=== PATIENT | male | born 1955 | race Caucasian/White ===

== ENCOUNTER 2016-07-21 20:11 | Emergency (ER) | payer MEDICARE, OTHER ==
--- NOTE | ~2016-07-21 | CR211 ---
[facility] A Service of [facility] & [facility] RADIOLOGY TEXT RESULTS PATIENT: ALTHEA STARKEY LOCATION: [facility] : 55 UNIT #: [id number] AGE: [address]: Soren Rojas MD SEX: M ORDER DR: [id number] [facility] [address] [place], [place] [address] [id number] E MR#: [id number] #: [id number] NAME: ALTHEA STARKEY : 1955 SEX: M STUDY DATE/TIME: 07/21/2016 20:19 UNIT: [facility] ROOM: STUDY DESCRIPTION: CR Ribs Uni 2 View W PA Ch Rt Attending Physician: Soren Rojas M.D. Referring Physician: Sadia Esquivel M.D. Ordering Physician: Soren Rojas M.D. Primary Care Physician: Sadia Esquivel M.D. MEDICAL IMAGING REPORT This report is preliminary unless electronic signature is present EXAM AP and oblique views of the right ribs. COMPARISON PA chest with AP and oblique views of the left ribs on the same date. INDICATIONS 60-year-old male with right-sided rib pain after falling today. FINDINGS Cholecystectomy clips are noted. There are prominently gas-distended bowel loops in the upper abdomen, favored to primarily represent colon. The pattern has not significantly changed from a radiograph of April 14, 2013. Cardiomediastinal silhouette is normal. There are acute nondisplaced fractures of the right eighth and ninth lateral ribs. There is questionable free subdiaphragmatic air on the right. Calcifications in the bilateral neck, possibly vascular in nature. IMPRESSION 1. Acute nondisplaced fractures of the right eighth and ninth lateral ribs. No evidence of pneumothorax, pleural effusion or acute airspace disease. Normal cardiomediastinal silhouette. 2. Calcifications in the bilateral neck, possibly vascular in nature. 3. Gas noted below the right hemidiaphragm with possible colonic signature overlying it, but the colon is noted to not take this course on prior CT exams and the finding is concerning for possible free air within the abdomen of uncertain etiology. Left and right lateral decubitus views are recommended for further characterization. Dictated by... Nikhil Sutton M.D. [facility] A Service of [facility] RADIOLOGY TEXT RESULTS PATIENT: ALTHEA STARKEY LOCATION: [facility] : 55 UNIT #: [id number] AGE: [address]: Soren Rojas MD SEX: M ORDER DR: THIS IS AN ELECTRONICALLY VERIFIED REPORT Nikhil Sutton M.D. at 07/22/2016 2:15 PM BLM/psc TD: 07/22/2016 00:39 JOB #: [id number] MEDICAL IMAGING REPORT COPY
--- NOTE | ~2016-07-21 | EKG ---
PATIENT: ALTHEA STARKEY UNIT #: [id number] Ventricular Rate: 102 BPM Atrial Rate: 102 BPM P-R Interval: 166 ms QRS Duration: 86 ms Q-T Interval: 368 ms QTC Calculation(Bezet): 479 ms P [place]: 82 degrees Calculated R [place]: 74 degrees Calculated T [place]: 65 degrees Diagnosis Line: Sinus tachycardia Diagnosis Line: Nonspecific ST abnormality Diagnosis Line: Abnormal ECG Diagnosis Line: When compared with ECG of 22-JUN-2016 11:31, Diagnosis Line: ST no longer elevated in Inferior leads Diagnosis Line: Non-specific change in ST segment in Lateral leads Diagnosis Line: T wave amplitude has decreased in Anterior leads Diagnosis Line: Confirmed by BERTA FAROOQ MD ([id number]) on 07/22/2016 Diagnosis Line: 6:12:55 PM INTERPRETING MD: OSEAS VILLALTA
--- NOTE | ~2016-07-21 | CR210 ---
[facility] A Service of [facility] RADIOLOGY TEXT RESULTS PATIENT: ALTHEA STARKYE LOCATION: [facility] : 55 UNIT #: [id number] AGE: [address]: Soren Rojas MD SEX: M ORDER DR: [id number] [facility] [address] [place], [place] [address] [id number] E MR#: [id number] Acc #: [id number] NAME: ALTHEA STARKEY : 1955 SEX: M STUDY DATE/TIME: 07/21/2016 20:18 UNIT: [facility] ROOM: STUDY DESCRIPTION: CR Ribs Uni 2 View W PA Ch Lt Attending Physician: Sroen Rojas M.D. Referring Physician: Sadia Esquivel M.D. Ordering Physician: Soren Rojas M.D. Primary Care Physician: Sadia Esquivel M.D. MEDICAL IMAGING REPORT This report is preliminary unless electronic signature is present EXAM PA chest with AP and oblique views of the left ribs. DATE OF EXAM 07/21/2016 COMPARISON Acute abdominal series dated April 14, 2013. INDICATION 60-year-old male with left-sided rib pain after falling today. FINDINGS Lungs appear hyperlucent, most suggestive of emphysema. There is no evidence of pneumothorax, pleural effusion or acute airspace disease. Cardiomediastinal silhouette is within normal limits. There is gaseous distension of the stomach. There is similar appearing gaseous distension of bowel loops favored to represent colon in the epigastric region in both upper quadrants as compared to April 14, 2013. There is calcification in the right neck, possibly within the thyroid gland or, perhaps, involving the carotid artery. There has been prior cholecystectomy. The sutures in the epigastrium likely reflecting prior abdominal wall hernia repair. There is calcification of the thoracic aorta. No evidence of rib fracture. IMPRESSION 1. No acute radiographic abnormality of the chest. There is no evidence of rib fracture. 2. Findings suggestive of emphysema. Dictated by... Nikhil Sutton M.D. [facility] A Service of [facility] RADIOLOGY TEXT RESULTS PATIENT: ALTHEA STARKEY [id number] : 55 UNIT #: [id number] AGE: [address]: Soren Rojas MD SEX: M ORDER DR: THIS IS AN ELECTRONICALLY VERIFIED REPORT Nikhil Sutton M.D. at 07/22/2016 2:14 PM Terry TD: 07/22/2016 00:42 JOB #: [id number] MEDICAL IMAGING REPORT COPY
--- NOTE | ~2016-07-21 | CT71 ---
[facility] A Service of [facility] RADIOLOGY TEXT RESULTS PATIENT: ALTHEA STARKEY LOCATION: [facility] : 55 UNIT #: [id number] AGE: [address]: Soren Rojas MD SEX: M ORDER DR: [id number] [facility] [address] [place], [place] [address] [id number] E MR#: [id number] Acc #: [id number] NAME: ALTHEA STARKEY : 1955 SEX: M STUDY DATE/TIME: 07/21/2016 20:45 UNIT: [facility] ROOM: STUDY DESCRIPTION: CT Head Wo Contrast Attending Physician: Soren Rojas M.D. Referring Physician: Roberto Vaughan M.D. Ordering Physician: Deandre Good M.D. Primary Care Physician: Sadia Esquivel M.D. MEDICAL IMAGING REPORT This report is preliminary unless electronic signature is present EXAM Head CT without. DATE OF EXAM 07/21/2016 HISTORY Fell, busted lip, rib pain; fell 3 times today, head pain/forehead, alcohol history, pancreatitis, kidney disease. No cancer history. COMMENT Routine noncontrasted head CT is reviewed. COMPARISON Comparison is from 11/08/1998. TECHNIQUE NOTE: This CT exam was performed with one or more of the following radiation dose reduction techniques: automatic exposure control, adjustment of mA and/or kV according to patient size, and iterative reconstruction. FINDINGS There is no displaced calvarial fracture. The mastoid air cells are clear. The paranasal sinuses contain mucosal disease and there is partial opacification of the ethmoid air cells. Mucosal thickening of the sphenoid sinuses, maxillary sinuses. At least retained secretions in the sphenoid sinuses, possibly with tiny air-fluid level left sphenoid sinus. Osteomas probably left frontal sinus incidentally noted. Vascular calcifications at the base of the brain. There is atrophy greater than expected for age group. There is increase in CSF spaces around the brain, particularly anteriorly since 2008. This [facility] A Service of [facility] RADIOLOGY TEXT RESULTS PATIENT: ALTHEA STARKEY [id number] 55 UNIT #: [id number] AGE: [address]: Soren Rojas MD SEX: M ORDER DR: is probably due to progression of atrophy. There is also some density along the tentorium, asymmetric on the right side and this raises concern for a small amount of acute subdural blood along the tentorium. This is a change in appearance on comparison to 2009 and for this reason, I would recommend short-term followup imaging to reassess for possible acute intracranial hemorrhage. No acute cortical infarct. Mild periventricular white matter low-attenuation is nonspecific, but probably due to small vessel disease. No significant intracranial mass effect. IMPRESSION 1. There is some increase in asymmetric hyperdense material along the right side tentorium cerebellum on comparison back to a study from 2008, and this raises possibility of an acute subdural hematoma layering along the right side tentorium in the setting of head trauma. For this reason, I would recommend short-term followup head CT to reassess possible acute intracranial hemorrhage. 2. Also interval increase in size of CSF spaces overlying the frontal lobes bilaterally, probably related to interval progression of atrophy. 3. Mild probable sequelae of small vessel disease. 4. Paranasal sinus disease with at least some retained secretions, possibly small air-fluid level in the left sphenoid sinus. Findings called by myself at the end of this dictation to the emergency room. STAT * RESULT Dictated by... Mila Fleming M.D. THIS IS AN ELECTRONICALLY VERIFIED REPORT Mila Fleming M.D. at 07/21/2016 11:44 PM JAJA/soraya TD: 07/21/2016 21:45 JOB #: [id number] MEDICAL IMAGING REPORT COPY
--- NOTE | ~2016-07-21 | CT4 ---
[facility] A Service of [facility] RADIOLOGY TEXT RESULTS PATIENT: ALTHEA STARKEY LOCATION: [place] : 55 UNIT #: [id number] AGE: [address]: Soren Rojas MD SEX: M ORDER DR: [id number] [facility] [address] [place], [place] [address] [id number] E MR#: [id number] Acc #: [id number] NAME: ALTHEA STARKEY : 1955 SEX: M STUDY DATE/TIME: 07/21/2016 21:56 UNIT: [facility] ROOM: STUDY DESCRIPTION: CT Abd and Pelv Wo Cont Attending Physician: Soren Rojas M.D. Referring Physician: Sadia Esquivel M.D. Ordering Physician: Deandre Good M.D. Primary Care Physician: Sadia Esquivel M.D. MEDICAL IMAGING REPORT This report is preliminary unless electronic signature is present EXAM CT abdomen and pelvis, 07/21 at 2156 hours INDICATIONS Pain after fall 3 times today. History of alcohol abuse and pancreatitis. TECHNIQUE Axial images were obtained through the abdomen and pelvis without contrast. Multiplanar reformats were obtained. Comparison is made with 10/20/2009. This CT exam was performed with one or more of the following radiation dose reduction techniques: Automatic exposure control, adjustment of mA and/or kV according to patient size, and iterative reconstruction. FINDINGS ABDOMEN: There is some atelectasis or chronic scarring in the lower lobes. There is diffuse atherosclerotic disease. The gallbladder is surgically absent. There is marked hepatic steatosis. There are a few calcifications in the pancreas, compatible with chronic calcific pancreatitis. There is no evidence of acute pancreatitis on this noncontrast study. Increased density is noted in the renal pyramids bilaterally, which may reflect medullary sponge kidney. No discrete renal stones are seen on either side. There are no ureteral stones and there is no hydronephrosis. Unenhanced solid organs are otherwise normal. The unopacified GI tract demonstrates gas in large and small bowel loops which may reflect a component of ileus. There is nothing to suggest a bowel obstruction at this time. No free fluid. PELVIS: There is atherosclerotic disease. Urinary bladder is normal. There are no lower ureteral stones. There is no free fluid. The lower GI tract is grossly normal. Redundant sigmoid loops are incidentally noted. There is a right lateral ninth rib fracture. There is degenerative STS. [facility] A Service of [facility] RADIOLOGY TEXT RESULTS PATIENT: ALTHEA STARKEY LOCATION: [facility] : 55 UNIT #: [id number] AGE: [address]: Soren Rojas MD SEX: M ORDER DR: disease in the lumbar spine. IMPRESSION 1. Right lateral ninth rib fracture. No other evidence of acute trauma in the abdomen or pelvis. 2. Evidence of chronic calcific pancreatitis. No evidence of acute pancreatitis at this time. 3. Fatty liver. 4. Cholecystectomy. 5. No renal or ureteral stones are seen and there is no hydronephrosis. There is increased density in the renal pyramids suggesting medullary sponge kidney. 6. Mild ileus pattern suspected in the bowel. There is no bowel obstruction. 7. Diffuse atherosclerotic disease. Dictated by... Scott Jarrett Jr., M.D. THIS IS AN ELECTRONICALLY VERIFIED REPORT Scott Jarrett Jr., M.D. at 07/22/2016 4:47 AM KARIE/hakan TD: 07/22/2016 02:20 JOB #: [id number] MEDICAL IMAGING REPORT COPY
[~2016-07-21 20:11] MED LIST: FAMOTIDINE; KCL PO; LIBRIUM PO; LORAZEPAM1 MG PO; MAG-OX 400400 MG PO; NO MEDICATIONS; PROTONIX PO; THIAMINE HCL100 MG PO; [UNRECOGNIZED DRUG - OTHER]
[2016-07-21 20:28] LABS: POC - CKMB <1.0 ng/mL (0.0-7.9); POC - TROPONIN <0.05 ng/mL (<=0.05)
[2016-07-21 20:34] LABS: BASOPHIL% 0.3 % (0-2.5); HEMATOCRIT 39.5 % (38.0-50.0); HEMOGLOBIN 13.4 gm/dL (13.0-16.0); LYMPHOCYTE# 0.4 X10e3 (1.0-3.5); LYMPHOCYTE% 11.1 % (17.0-45.0); MEAN CELL VOLUME 91.8 FL (83-96); MEAN CORPUSCULAR HEMOGLOBIN 31.1 PG (28-34); MEAN CORPUSCULAR HGB CONC 33.9 g/dL (30-36); MEAN PLATELET VOLUME 6.5 FL (6.5-11.5); MONOCYTE# 0.3 X10e3 (0-1.0); MONOCYTE% 9.3 % (3.0-12.0); NEUTROPHIL# 2.6 X10e3 (1.5-7.1); NEUTROPHIL% 79.3 % (40-75); RED CELL DISTRIBUTION WIDTH 13.4 % (11.0-15.5); WHITE BLOOD COUNT 3.2 X10e3 (4.0-10.5)
[2016-07-21 20:40] LABS: INR 1.2; PARTIAL THROMBOPLASTIN TIME 35.5 SECONDS (23.5-31.3); PROTHROMBIN TIME (PATIENT) 12.5 SECONDS (9.6-11.5)
[2016-07-21 20:44] LABS: ALBUMIN SERUM 2.9 g/dL (3.5-5.0); ALCOHOL BLOOD 16 mg/dL (0); ALKALINE PHOSPHATASE 115 U/L (32-92); ALT (SGPT) 16 U/L (10-40); AST (SGOT) 39 U/L (10-42); BILIRUBIN, DIRECT 0.4 mg/dL (0.0-0.2); BILIRUBIN,INDIRECT 1.4 mg/dL (0.0-0.9); BILIRUBIN,TOTAL 1.8 mg/dL (0.2-2.0); CALCIUM SERUM 7.5 mg/dL (8.4-10.2); CARBON DIOXIDE 22 mmol/L (22-31); CHLORIDE 96 mmol/L (100-111); CREATININE SERUM 0.7 mg/dL (0.6-1.4); GLOM FILT RATE Estimated ABOVE60 mL/min (>60); GLUCOSE FASTING 143 mg/dL (70-110); POTASSIUM 3.2 mmol/L (3.5-5.1); PROTEIN TOTAL SERUM 6.9 g/dL (6.0-8.3); SODIUM 127 mmol/L (135-145)
[2016-07-21 20:46] LABS: DIFF IND NO; PLATELET COUNT 82 X10e3 (140-420)
[2016-07-21 20:49] LABS: BLOOD UREA NITROGEN <5 mg/dL (9-23); BUN/CREATININE RATIO 7.14
[2016-07-21 21:35] LABS: URINE SOURCE CLEAN CATCH
[2016-07-21 21:40] LABS: URINE APPEARANCE CLEAR; URINE BILIRUBIN NEG (NEG); URINE BLOOD NEG (NEG); URINE COLOR YELLOW; URINE GLUCOSE NEG (NEG); URINE KETONE NEG (NEG); URINE LEUKOCYTE ESTERASE NEG (NEG); URINE NITRATE NEG (NEG); URINE PROTEIN NEG (NEG); URINE SPECIFIC GRAVITY 1.004 (1.003-1.035); URINE UROBILINOGEN 0.2 MG/DL (NEG)
[2016-07-21 21:43] LABS: CULTURE INDICATED? NO
[2016-07-21 21:50] LABS: AMPHETAMINE NEG (NEG); BARBITURATES NEG (NEG); BENZODIAZEPINES NEG (NEG); COCAINE NEG (NEG); MARIJUANA NEG (NEG); OPIATES NEG (NEG); TRICYCLIC ANTIDEPRESSANTS NEG (NEG); U METHADONE NEG (NEG)
[2016-07-21 22:31] LABS: POC - CKMB <1.0 ng/mL (0.0-7.9); POC - TROPONIN <0.05 ng/mL (<=0.05)
== END 2016-07-22 00:09 | disposition hospice, home (50) ==
LOC: CED 20:11
PROVIDERS: Emergency Medicine
DX: S06.5X0A Traumatic subdural hemorrhage without loss of consciousness, initial encounter (principal); S22.41XA Multiple fractures of ribs, right side, initial encounter for closed fracture; R55 Syncope and collapse; E87.6 Hypokalemia; X58.XXXA Exposure to other specified factors, initial encounter; Y92.9 Unspecified place or not applicable; E87.1 Hypo-osmolality and hyponatremia
CPT/HCPCS: 36415; 70450; 71101; 74176; 80048; 80076; 80307; 81003; 82553; 82947; 84484; 85025; 85610; 85730; 93005; 96360; 99285; 99291; G0480; J2270

== ENCOUNTER → 2016-10-05 | Outpatient (CLI) | payer OTHER ==
--- NOTE | ~2016-10-05 | CR97 ---
[facility] A Service of [facility] RADIOLOGY TEXT RESULTS PATIENT: ALTHEA STARKEY LOCATION: [facility] : 55 UNIT #: [id number] AGE: [address]: Lona Antonio MD SEX: M ORDER DR: [id number] [facility] [address] [place], [place] [address] [id number] O MR#: [id number] Acc #: [id number] NAME: ALTHEA STARKEY. : 1955 SEX: M STUDY DATE/TIME: 10/05/2016 9:49 UNIT: [facility] ROOM: STUDY DESCRIPTION: CR Esophagram Attending Physician: Lona Antonio M.D. Referring Physician: Lona Antonio M.D. Ordering Physician: Lona Antonio M.D. Primary Care Physician: Sadia Esquivel M.D. MEDICAL IMAGING REPORT This report is preliminary unless electronic signature is present EXAM Double-contrast barium esophagram INDICATION Dysphagia and weight loss. This started 4 months ago. TECHNIQUE The patient was administered bicarbonate crystals followed by thick and thin barium multiple fluoroscopic images were obtained. FINDINGS Initial professor of geology image was unremarkable. Thoracic esophageal mucosa appears to be within normal limits. On several images, there was persistent narrowing identified within the distal thoracic esophagus although eventually this resolved. Hypopharynx appeared normal. There is no evidence of hiatal hernia or reflux. Esophageal motility is within normal limits. Total fluoroscopy time was 1.2 minutes. Patient was administered a barium tablet which passed without any difficulty. IMPRESSION 1. Focal area of narrowing identified within the distal esophagus eventually resolved and is favored to represent a muscular a-ring rather than any true stricture. 2. Patient's thoracic esophagus is, otherwise, of normal caliber. No obvious mass lesion is seen. 3. Hypopharynx appeared unremarkable on these images. Please note, however, that this patient had an abnormal CT July 01, 2016 which did show an apparent mass within the oropharynx. The possibility of head and neck neoplasm is certainly not excluded especially given history. Further evaluation with direct visualization, if not previously performed, is recommended. STS. [facility] A Service of [facility] RADIOLOGY TEXT RESULTS PATIENT: ALTHEA STARKEY LOCATION: [facility] : 55 UNIT #: [id number] AGE: [address]: Lona Antonio MD SEX: M ORDER DR: Dictated by... Jackelin Nielsen M.D. THIS IS AN ELECTRONICALLY VERIFIED REPORT Jackelin Nielsen M.D. at 10/06/2016 4:57 PM AFF/aa TD: 10/06/2016 10:03 JOB #: [id number] MEDICAL IMAGING REPORT Page 1 of 1 COPY
== END | disposition home or self-care (01) ==
LOC: CRAD 09:18
DX: R13.10 Dysphagia, unspecified (principal); K22.2 Esophageal obstruction
CPT/HCPCS: 74220